=== PATIENT | male | born 1990 | race Caucasian/White ===

== ENCOUNTER 2022-11-06 21:32 | Emergency (ER) | payer MEDICAID, OTHER ==
[~2022-11-06] VITALS: Ht 170.2 cm; Wt 77.3 kg
[~2022-11-06 21:32] MED LIST: ALPR-624 PO; ALPR2TAB7 PO; DEXT20TA6 PO; HYDR-3972 PO; VILA10TA PO
[2022-11-06 22:12] VITALS: BP 110/77
[2022-11-06] MEDS ORDERED: ciprofloxacin 0.3% 2.5ml ophthalmic solution RIGHTEYE ONE (22:25)
[2022-11-06] MEDS ORDERED: proparacaine 0.5% ophthalmic drops 15ml RIGHTEYE ONE (22:25)
[2022-11-06] MEDS ORDERED: CIPR2.5D21 RIGHTEYE (22:34)
== END 2022-11-06 23:10 | disposition home or self-care (01) ==
LOC: ER 21:33
DX: T15.11XA Foreign body in conjunctival sac, right eye, initial encounter (principal); H53.8 Other visual disturbances; G89.29 Other chronic pain; F14.90 Cocaine use, unspecified, uncomplicated; Z72.89 Other problems related to lifestyle; Z79.899 Other long term (current) drug therapy; Z98.890 Other specified postprocedural states; X58.XXXA Exposure to other specified factors, initial encounter; Y93.89 Activity, other specified; Y92.89 Other specified places as the place of occurrence of the external cause; Y99.8 Other external cause status
CPT/HCPCS: 65205; 65220; 99284

== ENCOUNTER 2024-09-25 00:24 | Emergency (ER) | payer MEDICAID ==
[~2024-09-25] VITALS: Ht 172.7 cm; Wt 79.5 kg
[2024-09-25 01:14] LABS: BILIRUBIN,URINE NEGATIVE (Neg); CLARITY,URINE CLEAR (Clear); COLOR,URINE YELLOW (Yellow); GLUCOSE, URINE NEGATIVE (Neg); KETONES,URINE NEGATIVE (Neg); LEUKOCYTE ESTERASE ,URINE NEGATIVE (Neg); NITRITES, URINE NEGATIVE (Neg); OCCULT BLOOD,URINE NEGATIVE (Neg); PROTEIN,URINE NEGATIVE (Neg); UROBILINOGEN,URINE 0.2 E.U/dL (0.2-1.0)
[2024-09-25 01:15] LABS: UA COLLECTION TYPE CLN CATCH MIDSTREAM
--- NOTE | 2024-09-25 02:12 | Physician Documentation ---
History of Present Illness ~ Chief Complaint: Urinary Symptoms Stated Complaint: ABDOMINAL DISCOMFORT Time Seen by MD: 02:12 Primary Medical Doctor: NONE HPI 33-year-old male presenting with urinary symptoms. He tells me that for the past 1 month he has been having a sensation that he needs to urinate. He occasionally has discomfort in his suprapubic region or discomfort when he tries to start urinating. He tells me that during sex, his difficult for him to performed because he feels like he has to urinate. He denies any fevers, nausea, vomiting. No hematuria. No groin swelling or testicle pain. No discharge from his penis. No rectal pain. No history of STI. He has had the same partner for 8 years. No anal sex. Medication Reconciliation Allergies: Coded Allergies: prednisone (Verified Allergy, Unknown, 09/25/24) Uncoded Allergies: GARDISIL (Allergy, Unknown, body flashes, 02/06/15) Scheduled Alprazolam (Alprazolam), 1 TAB PO BID, (Reported) Alprazolam* (Xanax*), 1 MG PO Q2D, (Reported) Dextroamphetamine/Amphetamine (Amphetamine Salts 20 mg Tablet), 1 TAB PO BID, (Reported) Doxycycline Monohydrate (Doxycycline Monohydrate), 1 CAP PO Q12H Vilazodone Hydrochloride (Viibryd), 1 TABLET PO DAILY, (Reported) Scheduled PRN Hydrocodone Bit/Acetaminophen (Hydrocodon-Acetaminophn 10-325 tablet), 1 TAB PO Q4H PRN for pain, (Reported) Past Medical History Past Medical History: No Pertinent History, Chronic Pain, Chronic Back Pain, Anxiety, Bipolar Past Surgical History: abdominal surgery Alcohol Use: Occasionally Drug Use: cocaine Lives In: Home Occupation: employed Review of Systems Constitutional: Denies: fever Gastrointestinal: Reports: abdominal pain Genitourinary: Reports: dysuria Physical Exam Vital Signs: Temperature: 98.3, Heart Rate: 113, Respiratory Rate: 16, BP: 130/90, Pulse Oximetry: 99, Weight: 79.550 Oxygen Flow Rate: 0 Physical Exam General: This is a mildly anxious but otherwise healthy-appearing young man HEENT: Atraumatic, oropharynx is moist Heart: Tachycardic, appears regular Lungs: normal work of breathing, normal oxygen saturation on room air Abdomen: Soft, nondistended, mild discomfort on palpation in the left suprapubic region only, otherwise nontender, no rebound or guarding : The patient declined a rectal or prostate exam, declined further genital exam Neuro: Alert and oriented, no focal deficits Psychiatric: Appears mildly anxious but is cooperative Progress Results/Orders Results/Orders Completed Orders - ESTUARDO BARAJAS MD Urinalysis, Cult If Indicated (09/25/24 00:53) Ceftriaxone 500 Im W/Lidocaine (Rocephin (09/25/24 02:30) Doxycycline 100mg Capsule (Vibramycin 10 (09/25/24 02:29) Medications Received in ER Medications (Trade) Dose Ordered Sig/Diana Route PRN Reason Start Time Stop Time Status Last Admin Dose Admin (Rocephin 500MG IM kit (w/1% LIDOcaine)) 500 mg ONCE ONCE IM 09/25/24 02:30 09/25/24 02:32 DC 09/25/24 02:38 500 MG (VIBRAMYCIN 100mg capsule) 100 mg ONCE STAT PO 09/25/24 02:29 09/25/24 02:32 DC 09/25/24 02:37 100 MG Vital Signs 09/25/24 09/25/24 00:32 02:46 Temp 98.3 98.6 Pulse 113 109 Resp 16 18 B/P (MAP) 130/90 128/86 Pulse Ox 99 99 O2 Flow Rate 0 Laboratory Tests Test 09/25/24 01:05 Urine Specimen Description Cln catch midstream Urine Color Yellow Urine Clarity Clear Urine pH 6.0 Urine Specific [place] >=1.030 Urine Protein Negative Urine Glucose (UA) Negative Urine Ketones Negative Urine Occult Blood Negative Urine Nitrite Negative Urine Bilirubin Negative Urine Urobilinogen 0.2 Urine Leukocyte Esterase Negative Urine Culture Indicated Not ind Volume Urine Centrifuged 10 ml Urine Comment Medical Decision Making Additional Comment Differential includes UTI, prostatitis, STI, urinary retention, anxiety, urethritis Assessment 33-year-old male presenting with urinary symptoms. Per his history and exam, the exact cause of the symptoms is unclear. His urinalysis is unremarkable, no evidence of UTI. I did express concern for possible prostatitis, but he declined rectal exam. Postvoid residual shows no urinary retention. He has no obvious risk factors for STI although this remains a possibility. After a shared decision-making conversation, he would like to be treated empirically for STI. He was given IM ceftriaxone and will be discharged with 2 weeks of doxycycline. His partner will get tested for STIs well. He was encouraged to follow-up as an outpatient for further evaluation. Departure Time of Disposition: 02:31 Disposition: 01 HOME / SELF CARE / HOMELESS Impression: Primary Impression: Dysuria Additional Impression: Urinary frequency Referrals: NO PRIMARY CARE PROVIDER (PCP) Prescriptions Doxycycline Monohydrate (Doxycycline Monohydrate) 100 Mg Capsule 1 CAP PO Q12H for 14 Days, #28 CAP Prov: ESTUARDO BARAJAS MD 09/25/24 Education Educated: Patient Educated regarding: treatment, need for follow up Signature Scribe Signature: na Attestation: ESTUARDO Kingston MD September 25, 2024 02:12
[2024-09-25] MEDS ORDERED: DOXY100C76 PO (02:34)
[2024-09-25] MEDS: DOXYCYCLINE 100MG CAPSULE PO STA (02:37)
[2024-09-25] MEDS: CefTRIAXone 500MG IM Kit w/LIDOcaine IM ONE (02:38)
[2024-09-25 02:46] VITALS: BP 128/86; PULSE 109; RESP 18; TEMP 98.6; O2SAT 99
== END 2024-09-25 02:47 | disposition home or self-care (01) ==
LOC: ER 00:24
DX: R30.0 Dysuria (principal); R35.0 Frequency of micturition; F14.90 Cocaine use, unspecified, uncomplicated; Z88.8 Allergy status to other drugs, medicaments and biological substances; Z79.899 Other long term (current) drug therapy; Z72.89 Other problems related to lifestyle
CPT/HCPCS: 81003; 96372; 99283; J0696

== ENCOUNTER 2025-01-05 07:04 | Emergency (ER) | payer MEDICAID ==
[~2025-01-05] VITALS: Ht 170.2 cm; Wt 83.4 kg
[2025-01-05 07:12] VITALS: TEMP 97.9
[2025-01-05 07:59] LABS: MEAN PLATELET VOLUME 7.2 FL (7.4-10.4); RED CELL DISTRIBUTION WIDTH 13.4 % (11.5-14.5)
--- NOTE | 2025-01-05 08:03 | Physician Documentation ---
History of Present Illness General Chief Complaint: Blood in Urine Stated Complaint: BLOOD IN URINE Time Seen by MD: 07:47 Primary Medical Doctor: NONE History of Present Illness Initial Comments The patient is a 34-year-old male who has been seen in the emergency room for dysuria in the past who complains today of hematuria. Patient states over the last three days he has about six episodes of seeing blood at the end of his urination. He denies any fevers or chills he denies any testicular pain he states he has feels a slight pressure when he urinates at times. The patient states he has been with the same sexual partner for last eight years. Patient denies any history of STI. Patient's symptoms are mild and persistent. Medication Reconciliation Allergies: Coded Allergies: prednisone (Verified Allergy, Unknown, 01/05/25) Uncoded Allergies: GARDISIL (Allergy, Unknown, body flashes, 02/06/15) Scheduled Alprazolam (Alprazolam), 1 TAB PO BID, (Reported) Alprazolam* (Xanax*), 1 MG PO Q2D, (Reported) Dextroamphetamine/Amphetamine (Amphetamine Salts 20 mg Tablet), 1 TAB PO BID, (Reported) Doxycycline Monohydrate (Doxycycline Monohydrate), 100 MG PO BID Vilazodone Hydrochloride (Viibryd), 1 TABLET PO DAILY, (Reported) Scheduled PRN Hydrocodone Bit/Acetaminophen (Hydrocodon-Acetaminophn 10-325 tablet), 1 TAB PO Q4H PRN for pain, (Reported) Past Medical History Past Medical History: No Pertinent History, Chronic Pain, Chronic Back Pain, Anxiety, Bipolar Past Surgical History: abdominal surgery Smoking: Cigarettes Alcohol Use: Occasionally Drug Use: cocaine Lives In: Home Occupation: employed Review of Systems All Other Systems at this time: Reviewed and Negative Physical Exam Physical Exam Vital Signs: Temperature: 97.9, Source: Temporal, Heart Rate: 93, Respiratory Rate: 16, BP: 124/85, Pulse Oximetry: 99, Weight: 83.400 Oxygen Flow Rate: 0 Physical Exam VITALS: Reviewed and as above. GENERAL: Alert, no apparent distress. HEENT: Normocephalic, atraumatic, PERRL, EOMI, dry mucosa, no erythema gu- testicles are bilaterally descended 3 cm each no masses were appreciated no significant tenderness was appreciated GI: Soft, non-tender, bowels sounds present, no rebound, guarding, or rigidity BACK: No CVA tenderness, or swelling MUSCULOSKELETAL: No deformities, no edema SKIN: Warm and dry, no rash NEURO: Oriented x4, No motor or sensory deficit PSYCH: Normal mood and affect, no agitation Progress Results/Orders Results/Orders Orders - OHLAKIL MD Chlam/Gc Amp Ur (01/05/25 08:11) Cult Urine + [address] (01/05/25 08:22) [facility] Cbc/Diff (01/05/25 07:18) BMP (01/05/25 07:18) Ua W/Microscopic, Cult If Ind (01/05/25 07:15) Ceftriaxone 500mg Inj. (Ceftriaxone 500m (01/05/25 08:35) Doxycycline 100mg Capsule (Vibramycin 10 (01/05/25 08:31) Vital Signs 01/05/25 01/05/25 01/05/25 07:12 07:52 07:54 Temp 97.9 Pulse 88 93 Resp 16 13 16 B/P (MAP) 130/91 124/85 (98) Pulse Ox 100 99 O2 Flow Rate 0 Laboratory Tests Test 01/05/25 07:15 01/05/25 07:35 Urine Specimen Description Cln catch midstream Urine Color Yellow Urine Clarity Cloudy Urine pH 5.5 Urine Specific [place] >=1.030 Urine Protein 30 H Urine Glucose (UA) Negative Urine Ketones Negative Urine Occult Blood Large H Urine Nitrite Negative Urine Bilirubin Negative Urine Urobilinogen 0.2 Urine Leukocyte Esterase Negative Urine RBC Tntc Urine WBC 5-10 H Urine Squamous Epithelial Cells None seen Urine Bacteria Few Urine Mucus None seen Urine Culture Indicated Indicated Volume Urine Centrifuged 10 ml Urine Comment White Blood Count 7.1 Red Blood Count 5.17 Hemoglobin 15.1 Hematocrit 44.6 Mean Corpuscular Volume 86.4 Mean Corpuscular Hemoglobin 29.3 Mean Corpuscular Hemoglobin Concent 33.9 Red Cell Distribution Width 13.4 Platelet Count 399 Mean Platelet Volume 7.2 L Neutrophils (%) (Auto) 41.9 L Lymphocytes (%) (Auto) 49.1 Monocytes (%) (Auto) 6.4 Eosinophils (%) (Auto) 2.0 Basophils (%) (Auto) 0.6 Neutrophils # (Auto) 3.0 Lymphocytes # (Auto) 3.5 Monocytes # (Auto) 0.5 Eosinophils # (Auto) 0.1 Basophils # (Auto) 0.0 CBC Comment Sodium Level 140 Potassium Level 3.8 Chloride Level 102 Carbon Dioxide Level 30.1 Anion Gap 8 Blood Urea Nitrogen 15 Creatinine 1.07 Estimated GFR/1.73 m2 79 BUN/Creatinine Ratio 14.0 Glucose Level 98 Calcium Level 9.3 Albumin 3.9 Chemistry Comments Departure Disposition: HOME / SELF CARE / HOMELESS Impression: Primary Impression: Hematuria Qualified Codes: R31.9 - Hematuria, unspecified Discharge Instructions: Hematuria, Adult Additional Instructions: Take the medication as prescribed. Return for worsening of your symptoms. If her symptoms do not improve follow up with Urology with the phone number that is attached. Referrals: NO PRIMARY CARE PROVIDER (PCP) AMY CULVER MD Prescriptions Doxycycline Monohydrate (Doxycycline Monohydrate) 100 Mg Capsule 100 MG PO BID, #28 CAP may sub doxycycline hyclate Prov: AKIL MENA MD 01/05/25 AKIL MENA MD Jan 05, 2025 08:03
[2025-01-05 08:04] LABS: LEUKOCYTE ESTERASE ,URINE NEGATIVE (Neg); NITRITES, URINE NEGATIVE (Neg); OCCULT BLOOD,URINE LARGE (Neg)
[2025-01-05 08:18] LABS: UA COLLECTION TYPE CLN CATCH MIDSTREAM
[2025-01-05 08:18] LABS: CREATININE 1.07 MG/DL (0.60-1.10); TOTAL CARBON DIOXIDE 30.1 MMOL/L (24-32); eCRCL 91 ML/MIN; eGFR 79 ML/MIN
[2025-01-05 08:22] LABS: MUCUS STRANDS NONE SEEN /LPF (Neg); SQUAMOUS EPITHELIAL CELL,UR NONE SEEN /LPF (FEW)
[2025-01-05] MEDS ORDERED: CEFTRIAXONE 500 MG VIAL IM ONE (08:35)
[2025-01-05] MEDS ORDERED: DOXY100C43 PO (08:45)
[2025-01-05] MEDS: DOXYCYCLINE 100MG CAPSULE PO STA (08:54)
[2025-01-05] MEDS: CefTRIAXone 500MG IM Kit w/LIDOcaine IM ONE (08:54)
[2025-01-05 16:07] VITALS: BP 124/78; PULSE 86; RESP 14; O2SAT 99
== END 2025-01-05 10:05 | disposition home or self-care (01) ==
LOC: ER 07:05
DX: R31.9 Hematuria, unspecified (principal); R30.0 Dysuria; F17.210 Nicotine dependence, cigarettes, uncomplicated; F14.90 Cocaine use, unspecified, uncomplicated; G89.29 Other chronic pain; F41.9 Anxiety disorder, unspecified; F31.9 Bipolar disorder, unspecified; Z88.8 Allergy status to other drugs, medicaments and biological substances; Z79.899 Other long term (current) drug therapy; Z72.89 Other problems related to lifestyle
CPT/HCPCS: 36415; 80048; 81001; 85025; 87088; 96372; 99283; J0696